=== PATIENT | male | born 1960 | race Caucasian/White ===

== ENCOUNTER → 2021-10-24 | Outpatient (CLI) | payer BC ==
[~2021-10-24] MED LIST: NEURONTIN300 MG/CAP PO; PROTONIX 40MG T40 MG PO; SYNTHROID0.1 MG/TAB PO; SYNTHROID0.112 MG/T PO
== END ==
LOC: COL.RAD 07:31
DX: G93.9 Disorder of brain, unspecified (principal); R20.8 Other disturbances of skin sensation
CPT/HCPCS: A9575

== ENCOUNTER 2021-10-31 07:34 | Outpatient (CLI) | payer BC ==
[2021-10-31] VITALS (7 sets, daily range): BP systolic 115–142; BP diastolic 70–76; PULSE 57–73; TEMP 98.3
[~2021-10-31] VITALS: Ht 177.8 cm; Wt 108.6 kg
[2021-10-31 09:40] LABS: CSF APPEARANCE CLEAR; CSF COLOR COLORLESS; CSF RBC 28 /mm3 (0-0)
[2021-10-31 09:52] LABS: GLUCOSE,CSF 59 mg/dL (40-70); TOTAL PROTEIN,CSF 26 mg/dL (15-45)
[2021-10-31 10:09] LABS: CSF MONONUCLEAR 88 % (70-100); CSF POLYMORPHONUCLEAR 12 % (0-6)
--- NOTE | 2021-10-31 10:30 | NUR ---
DC instructions were reviwed with pt and , both express understanding. Bandaid over LP site remains clean, dry and intact. Pt has steady gait to restroom. He's tolerated PO fluids without issue. No c/o headache or other issues. He is assisted out to 's car by wheelchair with belongings.
[2021-11-04 13:11] LABS: ALBUMIN CSF 12.1 mg/dL (<=27.0)
[2021-11-04 13:57] LABS: CSF IGG/ALBUMIN 0.13 (<=0.21); CSF,IGG 1.6 mg/dL (<=8.1)
[2021-11-04 15:09] LABS: ALBUMUN SERUM 3900 mg/dL (()); CSF SYNTHESIS RATE 0.03 mg/24 h (<=12); CSF-IGG INDEX 0.54 (<=0.85); IGG,SERUM 925 mg/dL (()); IGG/ALBUMIN SERUM 0.24 (<=0.40)
[2021-11-04 15:22] LABS: CSF OLIG BD INTERPRETATION 0 bands (<2); SE OLIGOCLONAL BANDING 0 bands (())
== END 2021-10-31 10:30 | disposition home or self-care (01) ==
LOC: COL.RAD 07:34
PROVIDERS: Psychiatry & Neurology Neurology
DX: I67.1 Cerebral aneurysm, nonruptured (principal); R90.82 White matter disease, unspecified
CPT/HCPCS: Q9967